=== PATIENT | female | born 1980 | race Caucasian/White ===

== ENCOUNTER 2016-11-03 08:35 | Emergency (ER) | payer OTHER ==
[~2016-11-03] VITALS: Ht 154.9 cm; Wt 98.9 kg
--- NOTE | 2016-11-03 08:40 | NUR ---
PRESENTS SELF TO ED FOR SOB, COUGH, AND CONGESTION X 3 DAYS. PT IS AFEBRILE. VSS
[2016-11-03] MEDS ORDERED: ALBUTEROL FS 2.5 MG/3 ML VIAL.NEB NEB ONE (09:00)
[2016-11-03] MEDS ORDERED: predniSONE 20 MG TABLET PO ONE (09:00)
[2016-11-03] MEDS ORDERED: IPRATROPIUM NEB FS 0.5 MG/2.5 ML AMPUL.NEB NEB ONE (09:00)
[2016-11-03] MEDS ORDERED: predniSONE 20 MG TABLET ONE (09:02)
--- NOTE | 2016-11-03 09:05 | NUR ---
URINE SAMPLE SENT
[2016-11-03] MEDS ORDERED: ALBUTEROL FS 2.5 MG/3 ML VIAL.NEB ONE (09:10)
[2016-11-03] MEDS ORDERED: IPRATROPIUM NEB FS 0.5 MG/2.5 ML AMPUL.NEB ONE (09:10)
--- NOTE | 2016-11-03 09:20 | NUR ---
BALDO [place] ONGOING
--- NOTE | 2016-11-03 09:46 | NUR ---
Patient discharged to home in stable condition. Written and verbal after care instructions given. Patient verbalizes understanding of instruction.
[2016-11-03 09:47] VITALS: BP 115/83
== END 2016-11-03 09:51 | disposition home or self-care (01) ==
LOC: ER 08:37
DX: J45.901 Unspecified asthma with (acute) exacerbation (principal); F17.200 Nicotine dependence, unspecified, uncomplicated
CPT/HCPCS: 84703; 94640; 99283; 99406; A4606; J7512; Z7610